=== PATIENT | female | born 1965 | race American Indian/Alaskan Native ===

== ENCOUNTER 2017-05-21 09:02 | Day surgery (SDC) | payer MEDICAID ==
[2017-05-16 10:54] VITALS: BMI 32.3
--- NOTE | 2017-05-19 04:16 | HP ---
REASON FOR ADMISSION: Cardiac catheterization, abnormal stress test. BRIEF CLINICAL HISTORY: The patient is a 51-year-old female with a past medical history significant for hypertension, hyperlipidemia, arthritis, obesity, body mass index 33 kg/m2, complaining of dyspnea on exertion and new onset of CHF. The patient underwent a stress test that was 1-mm ST downsloping in the inferior lead after 7 METs on tread mill , achieved 80% of predicted heart rate and read as abnormal stress test. The patient is scheduled for elective cardiac catheterization, possible angioplasty. The patient complains of dyspnea on exertion and heaviness in the chest. PAST MEDICAL HISTORY: Significant for COPD, arthritis, hypertension, and hyperlipidemia. SOCIAL HISTORY: Denies smoking. Denies any history of alcohol abuse. CURRENT MEDICATIONS: The patient is taking aspirin 81 mg daily, albuterol HFA p.r.n., vitamin D, atorvastatin 10 mg daily, diclofenac 50 mg daily, Protonix 40 mg daily, omeprazole 20 mg daily, Singulair 10 mg daily, metoprolol tartrate 25 p.o. b.i.d., hydrochlorothiazide 25 mg daily and Advair Diskus 50/250 b.i.d. REVIEW OF SYSTEMS: As per HPI. PHYSICAL EXAMINATION: GENERAL: As follows: Height of the patient is 5 feet 6 inches; weight of the patient is 203 pounds. Body mass index 33 kg/m2. VITAL SIGNS: Temperature afebrile, heart rate 68, and blood pressure 120/88. HEENT: PERRLA, intact. NECK: Supple. No carotid bruits. No thyromegaly. CHEST: Clear to auscultation. HEART: S1 and S2 regular. ABDOMEN: Soft. EXTREMITIES: Clubbing and cyanosis negative. LABORATORY DATA: Blood workup is pending. IMPRESSION: Chest pain, dyspnea on exertion, abnormal stress test, obesity, hypertension, and hyperlipidemia. RECOMMENDATION: Cardiac catheterization. Alternative discussed with the patient. Further recommendation after cardiac catheterization, and we will follow with you. Thank you Dr. Amin/Dr. Isiah Mehta for providing me the opportunity in taking care of patient, Shefali Schaffer. Ash Luz MD [facility]
[2017-05-21 09:44] LABS: BASO # 0.04 K/mm3 (0.0-2.0); BASO % 0.6 % (0.0-3.0); EOS # 0.2 (0.0-0.7); EOS % 2.4 % (1.5-5.0); GRAN # 2.86 (1.4-6.5); GRAN % 43.7 % (50.0-68.0); HEMATOCRIT 37.3 % (36.0-48.0); LYMPH # 2.8 (1.2-3.4); LYMPH % 42.3 % (22.0-35.0); MEAN CORPUSCULAR HEMOGLOBIN 26.6 pg (25.0-35.0); MEAN CORPUSCULAR HGB CONC 32.4 g/dl (31.0-37.0); MEAN PLATELET VOLUME 10.5 fl (7.0-11.0); MONO # 0.7 (0.1-0.6); RED CELL DISTRIBUTION WIDTH 16.2 % (11.5-14.5); WHITE BLOOD COUNT 6.6 10^3/ul (4.5-11.0)
[2017-05-21 09:51] LABS: BLOOD UREA NITROGEN 16 mg/dL (7-21); CALCIUM 9.6 mg/dL (8.4-10.5); CARBON DIOXIDE 27 mmol/L (21-33); CHLORIDE 107 mmol/L (98-107); CHOLESTEROL 172 mg/dL (130-200); GFR AFRICAN-AMERICAN > 60; GLUCOSE,RANDOM 101 mg/dL (70-110); POTASSIUM 3.5 mmol/L (3.6-5.0); SODIUM 141 mmol/L (132-148)
[2017-05-21 09:54] LABS: INR 1.07 (0.93-1.08); PARTIAL THROMBOPLASTIN TIME 30.9 Seconds (25.1-36.5)
[2017-05-21] MEDS ORDERED: Potassium Chloride 20 mEq ER Tab PO ONE (10:38)
[2017-05-21] MEDS ORDERED: Lidocaine 2% Inj (20ml) ONE (11:12)
[2017-05-21] MEDS ORDERED: Nitroglycerin 50mg in D5W 50 MG/250 ML BOTTLE IV ONE (11:13)
[2017-05-21] MEDS ORDERED: Midazolam 2 MG/2 ML VIAL ONE ×2 (11:33→12:00)
[2017-05-21] MEDS ORDERED: Bacitracin 500 Units/gm Oint Foilpak UD TOP ONE (12:26)
[2017-05-21] MEDS ORDERED: Sodium Chloride 0.9% 1,000 ML IV SCH (12:30)
[2017-05-21 12:48] VITALS: RESP 18; TEMP 97.7
[2017-05-21 13:23] VITALS: O2SAT 99
[2017-05-21] MEDS ORDERED: Bacitracin 500 Units/gm Oint Foilpak UD ONE (14:58)
[2017-05-21 16:11] VITALS: BP 132/70; PULSE 76
--- NOTE | 2017-05-21 16:46 | CARD ---
APPROVED REPORT Procedure(s) performed: Left Heart Catheterization HISTORY The patient is a 51 year-old female with a history of : tobacco history() : The patient is a current smoker , hypertension . INDICATION The indication(s) include : positive stress test. CASE TECHNIQUE The patient was brought electively to the Cardiac Catheterization Laboratory in a fasting state and was prepped and draped in a sterile manner. The left wrist was infiltrated with 2% Lidocaine subcutaneous anesthesia. A 6 FR Radial sheath sheath was inserted into the left radial artery without difficulty. Coronary angiography was performed using coronary diagnostic catheters. The left coronary system was accessed and visualized with a Diagnostic ,5Fr JL catheter. The right coronary system was accessed and visualized with a Diagnostic ,5FR JR catheter. The left ventricle was accessed and visualized with a Pig tail catheter. Left ventricular/Aortic Valve gradient assessed on pullback. Left ventriculogram was performed in LIMA projection. Closure device was deployed with a Fr TR band without any complications. The patient tolerated the procedure well and there were no complications associated with the procedure. Vessel Analysis The patient's coronary anatomy is right dominant. The left main coronary artery is a medium size vessel with diffuse calcification noted throughout this vessel and without significant stenosis. The left main trifurcates to the left anterior descending, circumflex, and ramus. The left anterior descending artery is a medium size vessel with diffuse calcification noted throughout this vessel and without significant stenosis. The first diagonal branch is a medium size vessel with diffuse calcification noted throughout this vessel and without significant stenosis. The circumflex artery is a large size vessel with diffuse calcification noted throughout this vessel and without significant stenosis. The first obtuse marginal branch is a large size vessel with diffuse calcification noted throughout this vessel and without significant stenosis. The ramus intermedius artery is a small size vessel with diffuse calcification noted throughout this vessel and with significant stenosis. There is a 60% stenosis in the proximal segment. less than 2 mm vessel The right coronary artery is a large size vessel with diffuse calcification noted throughout this vessel and without significant stenosis. There is a 30% stenosis in the mid segment. The right posterior descending artery is a large size vessel with diffuse calcification noted throughout this vessel and without significant stenosis. Left Ventricle The left ventricle is normal in size with normal contractility. There was no cardiomyopathy. The left ventricular ejection fraction is estimated to be 60-65%. The left ventricular end diastolic pressure is 16 mmHg. There was no gradient across the aortic valve upon pullback. 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 preserved Lv Fx.-EF60-65%, EDP-16 mmof Hg. Recommendations Aggressive Medical TherapyCardiac Risk Reduction Program Weight Loss Reduction Program CC; Drs. Amin/ Isiah Diana
== END 2017-05-21 16:10 | disposition home or self-care (01) ==
LOC: CATH 09:02
PROVIDERS: ATTEND Internal Medicine Cardiovascular Disease
DX: I25.10 Atherosclerotic heart disease of native coronary artery without angina pectoris (principal); I10 Essential (primary) hypertension; J44.9 Chronic obstructive pulmonary disease, unspecified; F17.200 Nicotine dependence, unspecified, uncomplicated; E78.5 Hyperlipidemia, unspecified; M19.90 Unspecified osteoarthritis, unspecified site
CPT/HCPCS: 36415; 80048; 80061; 85025; 85610; 85730; 86850; 86900; 93458; 99152; 99153; C1769; C1887 ×2; J1644 ×2; J2250; J3010; J7030; J7040; Q9967